=== PATIENT | female | born 1935 | race Caucasian/White ===

== ENCOUNTER → 2016-10-04 | Outpatient (CLI) | payer BC ==
[~2016-10-04] MED LIST: CHOL20007 PO; OFLO0.3S TOP; PRED1SUS3 OPR
[2016-10-04 11:02] LABS: ESTIMATED AVERAGE GLUCOSE 123 mg/dl; HA1C FLAG Normal (Normal)
[2016-10-04 11:19] LABS: BLOOD UREA NITROGEN 17 mg/dl (7-18); BUN/CREATININE RATIO 15.5 (10-20); CALCIUM 8.9 mg/dl (8.5-10.1); CARBON DIOXIDE 28 mmol/L (21-32); CHLORIDE 109 mmol/L (98-107); GLUCOSE 91 mg/dl (70-99); SODIUM 144 mmol/L (136-145)
== END | disposition home or self-care (01) ==
LOC: C.LABBC 07:59
PROVIDERS: ATTEND Internal Medicine
DX: I10 Essential (primary) hypertension (principal); E55.9 Vitamin D deficiency, unspecified; R73.01 Impaired fasting glucose

== ENCOUNTER → 2017-04-09 | Outpatient (CLI) | payer BC ==
[2017-04-09 11:08] LABS: ESTIMATED AVERAGE GLUCOSE 120 mg/dl; HA1C FLAG Normal (Normal)
[2017-04-09 11:16] LABS: BLOOD UREA NITROGEN 16 mg/dl (7-18); BUN/CREATININE RATIO 16.2 (10-20); CALCIUM 8.8 mg/dl (8.5-10.1); CARBON DIOXIDE 27 mmol/L (21-32); CHLORIDE 108 mmol/L (98-107); CREATININE 0.97 mg/dl (0.60-1.20); GLUCOSE 99 mg/dl (70-99); POTASSIUM 4.1 mmol/L (3.5-5.1); SODIUM 139 mmol/L (136-145)
[2017-04-09 11:19] LABS: CHOLESTEROL 184 mg/dl (0-200); CHOLESTEROL/HDL RATIO 2.1; HDL CHOLESTEROL 89 mg/dl; LDL CHOLESTEROL CALCULATED 82 mg/dl; TRIGLYCERIDES 67 mg/dl (0-150); VERY LOW DENSITY LIPOPROT CALC 13 mg/dl
== END | disposition home or self-care (01) ==
LOC: C.LABBC 08:15
PROVIDERS: ATTEND Internal Medicine
DX: E55.9 Vitamin D deficiency, unspecified (principal); I10 Essential (primary) hypertension; R73.01 Impaired fasting glucose

== ENCOUNTER 2019-08-22 13:47 | Inpatient (IN) ==
[2019-08-22] MEDS ORDERED: SODIUM CHLORIDE 0.9% 1000ML 1,000 ML IV ONE (13:53)
--- NOTE | 2019-08-22 14:32 | Emergency Department Note ---
History of Present Illness General Chief complaint: Altered Mental Status Stated complaint: ams Time Seen by Provider: 08/22/19 13:49 History of Present Illness Provider complaint: Altered mental status 84-year-old female was brought in by EMS for altered mental status. EMS states they received a call from a neighbor and after having please help them get into the house, they found the patient sitting in her bedroom in a pool of her own urine. The patient lives at home by herself. The only medication they found in the house was lisinopril. Patient is unable to give a history at this time and the history is limited. Home Medications Home Medications Medication Instructions Recorded Confirmed Type cholecalciferol (vitamin D3) 25 1,000 units PO DAILY 12/23/18 08/22/19 History mcg (1,000 unit) capsule lisinopril 5 mg tablet 5 mg PO DAILY #30 tab 07/20/19 08/22/19 Rx Allergies Allergy/AdvReac Type Severity Reaction Status Date / Time No Known Allergies Allergy Unknown Verified 07/13/19 11:41 Past Med/Surg History Medical History Essential hypertension (Acute) Hearing loss (Acute) History of breast cancer (Resolved) Hx of basal cell carcinoma Osteoporosis (Acute) Rosacea (Acute) Syncope Vitamin D deficiency (Acute) Surgical History (Updated 08/20/19 @ 14:50 by Addy Peters MD) History of lumpectomy of left breast History of Mohs micrographic surgery for skin cancer Hx of tonsillectomy Tubal ligation status Social History Preferred Language: Togolese Hearing Ability: Normal [employer] Consultant Required: No marital status: Current Living Situation: Alone current occupational status: retired Feels Safe at Home: Hesitant to Answer Smoking Status: Unknown if ever smoked Hx Alcohol Use: Yes Hx Substance Use: No Childhood Exposure to Second-Hand Smoke: Yes Dental Care, Regularly: Yes Physical Activity Frequency: 3-4 Times per Week Seatbelt Use: always Sunscreen Use: Yes Review of Systems Unobtainable due to cognitive status Physical Exam Vital Signs Vital Signs - 24 hr 08/22/19 14:05 08/22/19 14:08 08/22/19 14:14 Temperature 36.9 C Temperature Source Rectal Pulse Rate 87 Pulse Rate [Apical] Pulse Rhythm Regular Pulse Rhythm [Apical] Pulse Strength Normal Respiratory Rate 16 Respiratory Effort / Characteristics Non-Labored Spontaneous Respiratory Depth Normal Respiratory Pattern Regular Blood Pressure 180/89 H Blood Pressure [Left Arm] Blood Pressure Mean 119 Blood Pressure Mean [Left Arm] Blood Pressure Position Lying Blood Pressure Position [Left Arm] Pulse Oximetry 96 96 96 Oxygen Delivery Method Room Air Room Air Room Air Sepsis New/Unexplained Change in Mental Status Yes Sepsis Action Taken by Nursing No Action Required 08/22/19 15:12 Temperature Temperature Source Pulse Rate Pulse Rate [Apical] 89 Pulse Rhythm Pulse Rhythm [Apical] Regular Pulse Strength Respiratory Rate 20 Respiratory Effort / Characteristics Non-Labored Respiratory Depth Normal Respiratory Pattern Blood Pressure Blood Pressure [Left Arm] 210/80 H Blood Pressure Mean Blood Pressure Mean [Left Arm] 123 Blood Pressure Position Blood Pressure Position [Left Arm] Lying Pulse Oximetry 96 Oxygen Delivery Method Room Air Sepsis New/Unexplained Change in Mental Status Sepsis Action Taken by Nursing Physical Exam HENT: Exam performed. -Head: Normocephalic and atraumatic. -Right Ear: External ear normal. No mastoid tenderness. -Left Ear: External ear normal. No mastoid tenderness. -Mouth/Throat: The oropharynx is clear and moist. No trismus in the jaw. No dental abscesses or uvula swelling. No oropharyngeal exudate or tonsillar abscesses. EYES: Conjunctivae and EOM are normal. Pupils are equal, round, and reactive to light. Right eye exhibits no discharge. Left eye exhibits no discharge. No scleral icterus. NECK: Supple CV: Normal rate, regular rhythm, normal heart sounds and intact distal pulses. There is no peripheral edema. Palpable radial pulses bue. PULM/CHEST: Effort normal and breath sounds normal. No respiratory distress. No stridor. She has no wheezes. She has no rales. -Chest Wall: She exhibits no tenderness. ABD: The abdomen is soft. MUSC/SKEL: Normal range of motion. There is no peripheral edema, tenderness or deformity. LYMPH: No cervical adenopathy. NEURO: Motor and sensation grossly intact. GCS: E: 4 V: 1 M: 4 SKIN: Skin is warm and dry. She is not diaphoretic. Course Course 1400: The patient was evaluated in room A3. A complete history and physical exam was performed. 1545: Labs show leukocytosis of 12.3 and mildly elevated creatinine kinase of 687. Imaging shows no traumatic injury. No large cerebral infarct or any intracerebral hemorrhage. Patient is still unable to communicate with me. It is thought that the patient could have suffered from a stroke. Patient is not a TPA candidate as we do not know when her symptoms started. I did discuss this with the patient's daughter Angelika Salinas [phone] via telephone. She is a nurse in [place] who states she will come up to [facility] as soon as possible. Many hospitalist Dr. Schneider was made aware of the patient. Administered Medications Discontinued Medications Sodium Chloride (Nss 1000ml) 1,000 mls @ 999 mls/hr IV .Q1H1M ONE Stop: 08/22/19 14:53 Last Admin: 08/22/19 14:24 Dose: 999 mls/hr Documented by: [id number] Medical Decision Making Laboratory Data Result diagrams: 08/22/19 14:37 08/22/19 14:37 Lab Results 08/22/19 08/22/19 08/22/19 Range/Units 14:04 14:37 14:37 WBC 12.31 H (4.8-10.8) K/uL RBC 5.20 (4.2-5.4) M/uL Hgb 16.2 H (12.0-16.0) g/dL Hct 48.1 H (37-47) % MCV 92.5 (80-100) fL MCH 31.2 (25-34) pg MCHC 33.7 (32-36) g/dL RDW Std Deviation 44.2 (36.4-46.3) fL RDW Coeff of [place] 13.1 (11.5-14.5) % Plt Count 305 (130-400) K/uL MPV 9.7 (7.4-10.4) fL Immature Gran % (Auto) 0.3 % Neut % (Auto) 85.3 % Lymph % (Auto) 7.4 % [place] % (Auto) 6.9 % Eos % (Auto) 0.0 % Baso % (Auto) 0.1 % Immature Gran # (Auto) 0.04 H (0.00-0.02) K/uL Neut # (Auto) 10.50 H (1.4-6.5) K/uL Lymph # (Auto) 0.91 L (1.2-3.4) K/uL [place] # (Auto) 0.85 H (0.11-0.59) K/uL Eos # (Auto) 0.00 (0-0.5) K/uL Baso # (Auto) 0.01 (0-0.2) K/uL Platelet Estimate Normal (Normal) VBG pH (7.36-7.41) VBG pCO2 (38-50) mmHg VBG pO2 mmHg VBG HCO3 mmol/L VBG O2 Saturation % VBG Base Excess mEq/L Barometric Pressure mm/Hg Sodium (136-145) mmol/L Potassium (3.5-5.1) mmol/L Chloride (98-107) mmol/L Carbon Dioxide (21-32) mmol/L Anion Gap (3-11) BUN (7-18) mg/dl Creatinine (0.6-1.2) mg/dl Est Cr Clr Drug Dosing ml/min Est GFR ( Amer) Est GFR (Non-Af Amer) BUN/Creatinine Ratio (10-20) Glucose (70-99) mg/dl Lactate (0.4-2.0) mmol/L Calcium (8.5-10.1) mg/dl Magnesium (1.8-2.4) mg/dl Total Bilirubin (0.2-1) mg/dl AST (15-37) U/L ALT (12-78) U/L Alkaline Phosphatase (45-117) U/L Total Creatine Kinase (26-192) U/L Troponin I (0-0.045) ng/ml Total Protein (6.4-8.2) gm/dl Albumin (3.4-5.0) gm/dl Globulin (2.5-4.0) gm/dl Albumin/Globulin Ratio (0.9-2) Procalcitonin < 0.05 (0-0.5) ng/ml Urine Color Dark Yellow Urine Appearance Clear (Clear) Urine pH 5.5 (4.5-7.5) Ur Specific [place] 1.034 H (1.000-1.030) Urine Protein 1+ H (Negative) Urine Glucose (UA) Negative (Negative) Urine Ketones 2+ H (Negative) Urine Blood Negative (Negative) Urine Nitrite Negative (Negative) Urine Bilirubin Negative (Negative) Urine Urobilinogen Negative (Negative) Ur Leukocyte Esterase Negative (Negative) Urine WBC (Auto) 1-5 (0-5) /hpf Urine RBC (Auto) 0-4 (0-4) /hpf U Hyaline Cast (Auto) 1-5 (0-5) /lpf U Epithel Cells (Auto) 20-30 H (0-5) /lpf Urine Bacteria (Auto) Negative (Negative) Influenza Type A (PCR) (Neg) Influenza Type B (PCR) (Neg) 08/22/19 08/22/19 08/22/19 Range/Units 14:37 14:38 14:38 WBC (4.8-10.8) K/uL RBC (4.2-5.4) M/uL Hgb (12.0-16.0) g/dL Hct (37-47) % MCV (80-100) fL MCH (25-34) pg MCHC (32-36) g/dL RDW Std Deviation (36.4-46.3) fL RDW Coeff of [place] (11.5-14.5) % Plt Count (130-400) K/uL MPV (7.4-10.4) fL Immature Gran % (Auto) % Neut % (Auto) % Lymph % (Auto) % [place] % (Auto) % Eos % (Auto) % Baso % (Auto) % Immature Gran # (Auto) (0.00-0.02) K/uL Neut # (Auto) (1.4-6.5) K/uL Lymph # (Auto) (1.2-3.4) K/uL [place] # (Auto) (0.11-0.59) K/uL Eos # (Auto) (0-0.5) K/uL Baso # (Auto) (0-0.2) K/uL Platelet Estimate (Normal) VBG pH 7.40 (7.36-7.41) VBG pCO2 45 (38-50) mmHg VBG pO2 27 mmHg VBG HCO3 28 mmol/L VBG O2 Saturation < 60.0 % VBG Base Excess 2.2 mEq/L Barometric Pressure 731.1 mm/Hg Sodium 143 (136-145) mmol/L Potassium 4.1 (3.5-5.1) mmol/L Chloride 110 H (98-107) mmol/L Carbon Dioxide 25 (21-32) mmol/L Anion Gap 8.0 (3-11) BUN 35 H (7-18) mg/dl Creatinine 1.00 (0.6-1.2) mg/dl Est Cr Clr Drug Dosing 37.7 ml/min Est GFR ( Amer) 59.1 Est GFR (Non-Af Amer) 51.0 BUN/Creatinine Ratio 35.4 H (10-20) Glucose 135 H (70-99) mg/dl Lactate 1.3 (0.4-2.0) mmol/L Calcium 9.7 (8.5-10.1) mg/dl Magnesium 2.5 H (1.8-2.4) mg/dl Total Bilirubin 1.1 H (0.2-1) mg/dl AST 55 H (15-37) U/L ALT 40 (12-78) U/L Alkaline Phosphatase 96 (45-117) U/L Total Creatine Kinase 687 H (26-192) U/L Troponin I < 0.015 (0-0.045) ng/ml Total Protein 7.1 (6.4-8.2) gm/dl Albumin 3.7 (3.4-5.0) gm/dl Globulin 3.4 (2.5-4.0) gm/dl Albumin/Globulin Ratio 1.1 (0.9-2) Procalcitonin (0-0.5) ng/ml Urine Color Urine Appearance (Clear) Urine pH (4.5-7.5) Ur Specific [place] (1.000-1.030) Urine Protein (Negative) Urine Glucose (UA) (Negative) Urine Ketones (Negative) Urine Blood (Negative) Urine Nitrite (Negative) Urine Bilirubin (Negative) Urine Urobilinogen (Negative) Ur Leukocyte Esterase (Negative) Urine WBC (Auto) (0-5) /hpf Urine RBC (Auto) (0-4) /hpf U Hyaline Cast (Auto) (0-5) /lpf U Epithel Cells (Auto) (0-5) /lpf Urine Bacteria (Auto) (Negative) Influenza Type A (PCR) (Neg) Influenza Type B (PCR) (Neg) 08/22/19 Range/Units 14:40 WBC (4.8-10.8) K/uL RBC (4.2-5.4) M/uL Hgb (12.0-16.0) g/dL Hct (37-47) % MCV (80-100) fL MCH (25-34) pg MCHC (32-36) g/dL RDW Std Deviation (36.4-46.3) fL RDW Coeff of [place] (11.5-14.5) % Plt Count (130-400) K/uL MPV (7.4-10.4) fL Immature Gran % (Auto) % Neut % (Auto) % Lymph % (Auto) % [place] % (Auto) % Eos % (Auto) % Baso % (Auto) % Immature Gran # (Auto) (0.00-0.02) K/uL Neut # (Auto) (1.4-6.5) K/uL Lymph # (Auto) (1.2-3.4) K/uL [place] # (Auto) (0.11-0.59) K/uL Eos # (Auto) (0-0.5) K/uL Baso # (Auto) (0-0.2) K/uL Platelet Estimate (Normal) VBG pH (7.36-7.41) VBG pCO2 (38-50) mmHg VBG pO2 mmHg VBG HCO3 mmol/L VBG O2 Saturation % VBG Base Excess mEq/L Barometric Pressure mm/Hg Sodium (136-145) mmol/L Potassium (3.5-5.1) mmol/L Chloride (98-107) mmol/L Carbon Dioxide (21-32) mmol/L Anion Gap (3-11) BUN (7-18) mg/dl Creatinine (0.6-1.2) mg/dl Est Cr Clr Drug Dosing ml/min Est GFR ( Amer) Est GFR (Non-Af Amer) BUN/Creatinine Ratio (10-20) Glucose (70-99) mg/dl Lactate (0.4-2.0) mmol/L Calcium (8.5-10.1) mg/dl Magnesium (1.8-2.4) mg/dl Total Bilirubin (0.2-1) mg/dl AST (15-37) U/L ALT (12-78) U/L Alkaline Phosphatase (45-117) U/L Total Creatine Kinase (26-192) U/L Troponin I (0-0.045) ng/ml Total Protein (6.4-8.2) gm/dl Albumin (3.4-5.0) gm/dl Globulin (2.5-4.0) gm/dl Albumin/Globulin Ratio (0.9-2) Procalcitonin (0-0.5) ng/ml Urine Color Urine Appearance (Clear) Urine pH (4.5-7.5) Ur Specific [place] (1.000-1.030) Urine Protein (Negative) Urine Glucose (UA) (Negative) Urine Ketones (Negative) Urine Blood (Negative) Urine Nitrite (Negative) Urine Bilirubin (Negative) Urine Urobilinogen (Negative) Ur Leukocyte Esterase (Negative) Urine WBC (Auto) (0-5) /hpf Urine RBC (Auto) (0-4) /hpf U Hyaline Cast (Auto) (0-5) /lpf U Epithel Cells (Auto) (0-5) /lpf Urine Bacteria (Auto) (Negative) Influenza Type A (PCR) Neg for Influ A (Neg) Influenza Type B (PCR) Neg for Influ B (Neg) Imaging Data Radiologist's Impression: XR pelvis 1-2V routine CLINICAL HISTORY: Fall. Altered mental status. COMPARISON: None FINDINGS: Sacroiliac joints and symphysis pubis are intact. There is no acute fracture within the pelvis or hips. There is mild bilateral hip osteoarthritis. No suspicious osseous lesion is noted. Pelvic calcifications likely reflect phleboliths. IMPRESSION: No acute fracture within the pelvis or hips. ACT 112: Negative or not required by law. Electronically signed by: Delgado Cee M.D. 08/22/2019 3:20 PM Dictated: 08/22/19 1519 Transcribed: 08/22/[address] OF THE HEAD WITHOUT CONTRAST CLINICAL HISTORY: Fall. Altered mental status. COMPARISON STUDY: No previous studies for comparison. TECHNIQUE: Helical axial images of the head were obtained without IV contrast. Automated exposure control was utilized for the study. A dose lowering tech nique was utilized adhering to the principles of ALARA. FINDINGS: No acute intracranial hemorrhage, midline shift or mass effect is present. The ventricular system is unremarkable. The basilar cisterns are patent. No extra-axial collections are present. There are no findings to suggest acute dural sinus thrombosis or acute territorial infarct. No significant calvarial abnormalities are present. Visualized portions of the sinuses and mastoid air cells are clear. Extensive white matter hypodensity suggests small vessel disease. There is moderate atrophy. IMPRESSION: 1. No acute intracranial findings. 2. No calvarial fracture. 3. Extensive small vessel disease. Moderate atrophy. ACT 112: Negative or not required by law. Electronically signed by: Delgado Cee M.D. 08/22/2019 2:56 PM Dictated: 08/22/19 1453 Transcribed: 08/22/19 145 XR chest 1V portable CLINICAL HISTORY: Fall. Sepsis. COMPARISON STUDY: Chest radiograph March 10, 2019. FINDINGS: The patient is mildly rotated. Lung volumes are normal. Lungs are clear. There is no pneumothorax or pleural effusion. Cardiac size is normal. Mediastinal contours are normal. There is no evidence for pulmonary edema. IMPRESSION: No acute cardiopulmonary findings. ACT 112: Negative or not required by law. Electronically signed by: Delgado Cee M.D. 08/22/2019 3:21 PM Dictated: 08/22/19 1520 Transcribed: 08/22/[address] OF THE CERVICAL SPINE WITHOUT CONTRAST CLINICAL HISTORY: Fall. Altered mental status. COMPARISON STUDY: No previous studies for comparison. TECHNIQUE: Helical axial images of the cervical spine were obtained without IV contrast. Sagittal and coronal reconstructions were viewed. Automated exposure control was utilized for the study. A dose lowering technique was utilized adhering to the principles of ALARA. FINDINGS: Alignment of the cervical spine is anatomic. Vertebral body heights are maintained. No acute cervical spine fracture or subluxation is present. There is no prevertebral edema. Facet joints are intact. Note is made of moderate multilevel disc space narrowing, osteophytosis. There is moderate multilevel facet arthrosis. Degenerative changes at the C1-C2 articulation are noted. IMPRESSION: No acute cervical spine fracture or subluxation. ACT 112: Negative or not required by law. Electronically signed by: Delgado Cee M.D. 08/22/2019 3:04 PM Dictated: 08/22/19 1456 Transcribed: 08/22/19 145 ECG Data Rate (beats per minute): 93 Additional Comments: Sinus rhythm with a rate of 93. IL interval 82. QRS 72. QTc 440. No ST elevation or ST depression. There is baseline artifact due to patient movement. MDM Narrative Labs show leukocytosis of 12.3 and mildly elevated creatinine kinase of 687. Imaging shows no traumatic injury. No large cerebral infarct or any intracerebral hemorrhage. Patient is still unable to communicate with me. It is thought that the patient could have suffered from a stroke. Patient is not a TPA candidate as we do not know when her symptoms started. I did discuss this with the patient's daughter Angelika Salinas [phone] via telephone. She is a nurse in [place] who states she will come up to [facility] as soon as possible. Many hospitalist Dr. Schneider was made aware of the patient. Impression & Plan Altered mental status Discharge Plan Visit Data Chief Complaint: Altered Mental Status Stated Complaint: ams ED Provider: Jeffrey Valentine Discharge Problem: Altered mental status Forms Stand Alone Forms: My [facility] Prescriptions Prescriptions: No Action lisinopril 5 mg tablet 5 mg PO DAILY Qty: 30 RF: 4 cholecalciferol (vitamin D3) 1,000 unit capsule 1,000 units PO DAILY RF: 0 Referrals Referrals: Johnathon Rachel MD [Primary Care Provider] - Discharge Problem: Altered mental status Qualifiers: Altered mental status type: unspecified Qualified Code(s): R41.82 - Altered mental status, unspecified
[2019-08-22 14:43] LABS: Appearance Urine Clear (Clear); Bacteria Urine Automated Negative (Negative); Bilirubin Urine Negative (Negative); Blood Urine Negative (Negative); Color Urine Dark Yellow; Epithelial Cell Urine Auto 20-30 /lpf (0-5); Glucose Urine UA Negative (Negative); Ketones Urine 2+ (Negative); Leukocyte Esterase Urine Negative (Negative); Nitrite Urine Negative (Negative); Protein Urine 1+ (Negative); RBC Urine Automated 0-4 /hpf (0-4); Specific Gravity Urine 1.034 (1.000-1.030); Urobilinogen Urine Negative (Negative); pH Urine 5.5 (4.5-7.5)
[2019-08-22 14:49] LABS: Base Excess VBG 2.2 mEq/L; HCO3 VBG 28 mmol/L; Oxygen Saturation VBG < 60.0 %; PCO2 VBG 45 mmHg (38-50); PO2 VBG 27 mmHg
--- NOTE | 2019-08-22 14:57 | CT Scan Report ---
CT OF THE HEAD WITHOUT CONTRAST CLINICAL HISTORY: Fall. Altered mental status. COMPARISON STUDY: No previous studies for comparison. TECHNIQUE: Helical axial images of the head were obtained without IV contrast. Automated exposure con trol was utilized for the study. A dose lowering technique was utilized adhering to the principles o f ALARA. FINDINGS: No acute intracranial hemorrhage, midline shift or mass effect is present. The ventricular system is unremarkable. The basilar cisterns are patent. No extra-axial collections are present. Ther e are no findings to suggest acute dural sinus thrombosis or acute territorial infarct. No significan t calvarial abnormalities are present. Visualized portions of the sinuses and mastoid air cells are c lear. Extensive white matter hypodensity suggests small vessel disease. There is moderate atrophy. IMPRESSION: 1. No acute intracranial findings. 2. No calvarial fracture. 3. Extensive small vessel disease. Moderate atrophy. ACT 112: Negative or not required by law. Electronically signed by: Delgado Cee M.D. 08/22/2019 2:56 PM
[2019-08-22 15:04] LABS: Alanine Aminotransferase 40 U/L (12-78); Albumin Level 3.7 gm/dl (3.4-5.0); Aspartate Aminotransferase 55 U/L (15-37); BUN Creatinine Ratio 35.4 (10-20); Blood Urea Nitrogen 35 mg/dl (7-18); Calcium 9.7 mg/dl (8.5-10.1); Carbon Dioxide 25 mmol/L (21-32); Chloride 110 mmol/L (98-107); Creatinine Clr Calc Pharmacy 37.7 ml/min; Est GFR (African American) 59.1; Glucose 135 mg/dl (70-99); Magnesium 2.5 mg/dl (1.8-2.4); Potassium 4.1 mmol/L (3.5-5.1); Sodium 143 mmol/L (136-145)
--- NOTE | 2019-08-22 15:05 | CT Scan Report ---
CT OF THE CERVICAL SPINE WITHOUT CONTRAST CLINICAL HISTORY: Fall. Altered mental status. COMPARISON STUDY: No previous studies for comparison. TECHNIQUE: Helical axial images of the cervical spine were obtained without IV contrast. Sagittal a nd coronal reconstructions were viewed. Automated exposure control was utilized for the study. A do se lowering technique was utilized adhering to the principles of ALARA. FINDINGS: Alignment of the cervical spine is anatomic. Vertebral body heights are maintained. No acut e cervical spine fracture or subluxation is present. There is no prevertebral edema. Facet joints are intact. Note is made of moderate multilevel disc space narrowing, osteophytosis. There is moderate multilevel facet arthrosis. Degenerative changes at the C1-C2 articulation are noted. IMPRESSION: No acute cervical spine fracture or subluxation. ACT 112: Negative or not required by law. Electronically signed by: Delgado Cee M.D. 08/22/2019 3:04 PM
[2019-08-22 15:08] LABS: Albumin Globulin Ratio 1.1 (0.9-2); Alkaline Phosphatase 96 U/L (45-117); Bilirubin,Total 1.1 mg/dl (0.2-1); Creatine Kinase 687 U/L (26-192); Globulin 3.4 gm/dl (2.5-4.0); Total Protein 7.1 gm/dl (6.4-8.2); Troponin I < 0.015 ng/ml (0-0.045)
[2019-08-22 15:15] LABS: Basophils # (auto) 0.01 K/uL (0-0.2); Basophils % (auto) 0.1 %; Hematocrit (blood only) 48.1 % (37-47); Hemoglobin 16.2 g/dL (12.0-16.0); Immature Granulocytes # (auto) 0.04 K/uL (0.00-0.02); Immature Granulocytes % (auto) 0.3 %; Lymphocytes # (auto) 0.91 K/uL (1.2-3.4); Lymphocytes % (auto) 7.4 %; Mean Corpuscular Hemoglobin 31.2 pg (25-34); Mean Corpuscular Hgb Conc 33.7 g/dL (32-36); Mean Corpuscular Volume 92.5 fL (80-100); Mean Platelet Volume 9.7 fL (7.4-10.4); Monocytes # (auto) 0.85 K/uL (0.11-0.59); Monocytes % (auto) 6.9 %; Neutrophils % (auto) 85.3 %; Platelet Count 305 K/uL (130-400); Platelet Estimate Normal (Normal); RDW Coefficient of Variation 13.1 % (11.5-14.5); RDW Standard Deviation 44.2 fL (36.4-46.3); White Blood Count 12.31 K/uL (4.8-10.8)
--- NOTE | 2019-08-22 15:21 | XRay Report ---
XR pelvis 1-2V routine CLINICAL HISTORY: Fall. Altered mental status. COMPARISON: None FINDINGS: Sacroiliac joints and symphysis pubis are intact. There is no acute fracture within the pe lvis or hips. There is mild bilateral hip osteoarthritis. No suspicious osseous lesion is noted. Pelv ic calcifications likely reflect phleboliths. IMPRESSION: No acute fracture within the pelvis or hips. ACT 112: Negative or not required by law. Electronically signed by: Delgado Cee M.D. 08/22/2019 3:20 PM
--- NOTE | 2019-08-22 15:22 | XRay Report ---
XR chest 1V portable CLINICAL HISTORY: Fall. Sepsis. COMPARISON STUDY: Chest radiograph March 10, 2019. FINDINGS: The patient is mildly rotated. Lung volumes are normal. Lungs are clear. There is no pneumo thorax or pleural effusion. Cardiac size is normal. Mediastinal contours are normal. There is no evid ence for pulmonary edema. IMPRESSION: No acute cardiopulmonary findings. ACT 112: Negative or not required by law. Electronically signed by: Delgado Cee M.D. 08/22/2019 3:21 PM
[2019-08-22 15:24] LABS: Influenza A virus by PCR Neg for Influ A (Neg); Influenza B virus by PCR Neg for Influ B (Neg)
--- NOTE | 2019-08-22 16:48 | History & Physical Report ---
Date of Service August 22, 2019 Assessment & Plan (1) Altered mental status: Possible CVA, sx improving in the ED CT head neg, MRI/MRA pending UA neg for infection, flu neg CXR neg for infection PRP, trop, lactic WNL WBC mildly elevated in the setting of fall CPK slightly elevated in the setting of likely early rhabdo Neuro c/s pending PT/OT/ST Passed bedside swallow without difficulty, will allow for soft diet (2) Essential hypertension: Labile in the ED in the setting of likely missed AM medication Metoprolol 5mg IV now, resume home meds in AM (3) DVT prophylaxis: Heparin for DVT proph, SCDs History of Present Illness Primary Care Provider: Johnathon Rachel MD 84 y/o F who was brought to the ED by ambulance after being found unresponsive and soaked in urine on the floor of her home. Pt was initially unresponsive in the ED, however upon my exam she is able to answer yes/no questions. Pt denies fever, SOB, chest pain, abd pain, n/v/c/d, LE pain or swelling. She cannot give me further details. I did speak with pt's daughter, Angelika Salinas, who is a nurse in [place]. She tells me that last contact with her mother was via her sister on Saturday and pt was doing well at that time. Pt requested that they stop checking in with her as much as they had been because she was doing fine despite the current COVID issues. They did not attempt to call her until yesterday. No answer was obtained and no return call from multiple calls. They thought pt might be busy with other things or ignoring them as she had requested them to not worry with her, but when pt was not answering or returning calls this AM, they became nervous. Police were asked to do a well check and obtained entry to the home when pt did not answer the door or phone. Pt was found on the floor as noted above. Daughter states that pt is generally quite active and healthy. Prior to COVID restrictions, she was going to the gym multiple times a week. She is very talkative and has no issues living on her own or communicating. Her only health issue was a syncopal episode last February. It was noted at that time that her BP was markedly elevated and she was started on lisinopril on d/c. She has been working with her PCP and this dose has been decreased lately. Allergies Allergy/AdvReac Type Severity Reaction Status Date / Time No Known Allergies Allergy Unknown Verified 07/13/19 11:41 Home Medications Home Medications Medication Instructions Recorded Confirmed Type cholecalciferol (vitamin D3) 25 1,000 units PO DAILY 12/23/18 08/22/19 History mcg (1,000 unit) capsule lisinopril 5 mg tablet 5 mg PO DAILY #30 tab 07/20/19 08/22/19 Rx Past Med/Surg History Medical History Essential hypertension (Acute) Hearing loss (Acute) History of breast cancer (Resolved) Hx of basal cell carcinoma Osteoporosis (Acute) Rosacea (Acute) Syncope Vitamin D deficiency (Acute) Surgical History History of lumpectomy of left breast History of Mohs micrographic surgery for skin cancer Hx of tonsillectomy Tubal ligation status Family History Brother Pulmonary embolism Mother Stroke Other Leukemia Lung cancer Denies family history of Ovarian cancer Prostate cancer Myocardial infarction Breast cancer Colorectal cancer Social History (Updated 08/22/19 @ 16:44 by Berkley Schneider DO) Preferred Language: French Hearing Ability: Normal 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 Beliefs That Will Affect Care: None marital status: Current Living Situation: Alone current occupational status: retired Other Information That Helps Us Care for You: No Feels Safe at Home: Yes Safety Concerns: Feels Safe At This Time Smoking Status: Never smoker Hx Alcohol Use: No Hx Substance Use: No Childhood Exposure to Second-Hand Smoke: Yes Dental Care, Regularly: Yes Physical Activity Frequency: 3-4 Times per Week Seatbelt Use: always Sunscreen Use: Yes Review of Systems Review of Systems: Pertinent positives and negatives reviewed in HPI--all others negative Physical Exam Constitutional: WD/WN, vitals as above Eyes: normal visual palomares by confrontation and + anicteric sclerae Neck: normal visual inspection and trachea midline Respiratory: normal respiratory effort, lungs clear to auscultation Cardiovascular: Rate/Rhythm: regular rate and regular rhythm Gastrointestinal (Abdomen): Inspection/Auscultation: abdomen not distended Percussion/Palpation: abdomen soft; abdomen nontender Musculoskeletal: Head/Neck/Chest: normocephalic and head atraumatic negative for edema, peripheral pulses intact Skin: no rashes, warm and dry Neurologic: awake; not confused Speech / Cognition: normal speech Psychiatric: Orientation: oriented to person and cooperative; + not oriented to place and + not oriented to time answers yes/no questions with what seem to be appropriate answers. When pressed for details, she states "ok" to any questions. 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 States she discussed this with her mother in the past as well VTE Prophylaxis Plan VTE Prophylaxis will be ordered: Yes PG Care Time/CCT Total # of Minutes Spent Total Time Spent with Patient: Total time spent is greater than 50% in coordination of care (as documented) at patient's floor/unit and/or counseling patient: Coding Level of Care Code 69510 Initial Inpt Care Lvl 3 Diagnoses Altered mental status R41.82 Altered mental status type: unspecified Essential hypertension I10 DVT prophylaxis Z29.9 (1) Altered mental status Altered mental status type: unspecified Qualified Code(s): R41.82 - Altered mental status, unspecified
[2019-08-22 16:52] LABS: INR 1.1 (0.9-1.1); Partial Thromboplastin Ratio 0.8; Partial Thromboplastin Time 23.4 Seconds (21.0-31.0); Prothrombin Time 11.6 Seconds (9.0-12.0)
[2019-08-22] MEDS ORDERED: METOPROLOL TARTRATE 1 MG/ML VIAL IV STA (17:39)
[2019-08-22] MEDS ORDERED: ACETAMINOPHEN 325 MG TAB PO PRN (18:17)
[2019-08-22] MEDS ORDERED: ONDANSETRON INJ 2 MG/ML 2 ML VIAL IV PRN (18:17)
[2019-08-22] MEDS ORDERED: PHARMACIST DISCHARGE MED REC CONSULT PRN ×2 (18:17→18:49)
[2019-08-22] MEDS ORDERED: MAGNESIUM HYDROXIDE SUSP 30 ML UDC PO PRN (18:17)
[2019-08-22] MEDS ORDERED: OPTIRAY 320 125ml IV PRN (20:42)
--- NOTE | 2019-08-22 21:01 | Magnetic Resonance Report ---
MRI OF THE BRAIN WITHOUT CONTRAST CLINICAL HISTORY: possible CVA COMPARISON STUDY: Head CT performed earlier today. TECHNIQUE: Utilizing a 1.5 Danica magnet and dedicated coil, multiplanar, multiecho imaging of the bra in was performed without IV contrast. FINDINGS: Note is made of multiple foci of restricted diffusion within the left paramedian frontal lo be that measure up to 4.3 x 1.2 cm. No acute intracranial hemorrhage is present. There is no signific ant mass effect. Marked atrophy is noted as well as extensive T2 hyperintensity consistent with small vessel disease. Ventricular system is unremarkable. Basilar cisterns are patent. There are no extra axial collections. No intracranial masses are identified on this unenhanced exam. Calvarial signal is maintained. Orbits are unremarkable. IMPRESSION: 1. Multiple acute infarcts within the left paramedian frontal lobe which measure up to 4.3 x 1.2 cm. No significant mass effect. No acute hemorrhage. 2. Marked atrophy and extensive small vessel disease. ACT 112: Negative or not required by law. Electronically signed by: Delgado Cee M.D. 08/22/2019 9:00 PM
[2019-08-22] MEDS: HEPARIN SOD 5,000 UNIT/0.5 ML VIAL SQ SCH (21:07)
--- NOTE | 2019-08-22 21:12 | CT Scan Report ---
CT ANGIOGRAPHY OF THE NECK WITH CONTRAST CLINICAL HISTORY: ?CVA COMPARISON STUDY: No previous studies for comparison. Technique: CT angiography of the carotid and vertebral arteries was obtained using [facility] 320 IV and 3D reconstruction on an independent workstation. NASCET criteria was utilized. Automated exposure c ontrol was utilized for the study. A dose lowering technique was utilized adhering to the principles of ALARA. Findings: Lung apices are clear. There is no cervical lymphadenopathy. No cervical spine fracture is noted. The bilateral carotid bifurcations are patent. There is minimal plaque within the proximal lef t internal carotid artery. The cervical portion of the right internal carotid artery is tortuous whic h results in moderate narrowing. However, there is no stenosis due to plaque within the major vessels of the neck. The bilateral vertebral arteries are patent. There is no dissection. There is no aneury sm within the major vessels of the neck. The CTA of the head will be reported separately. IMPRESSION: 1. Minimal plaque which results in no stenosis of the major vessels of the neck. No dissection. 2. Tortuosity of the cervical portion of the right internal carotid artery which results in moderate narrowing. ACT 112: Negative or not required by law. Electronically signed by: Delgado Cee M.D. 08/22/2019 9:11 PM
--- NOTE | 2019-08-22 21:17 | CT Scan Report ---
CTA ANGIOGRAPHY OF THE HEAD CLINICAL HISTORY: ?CVA COMPARISON STUDY: Head CT and MRI of the brain performed earlier today. TECHNIQUE: Helical axial images of the head were obtained following uneventful intravenous administr ation of 119 cc of Optiray 320. Sagittal and coronal reconstructions were viewed as well as maximal i ntensity projections on an independent 3-D workstation. Automated exposure control was utilized for the study. A dose lowering technique was utilized adhering to the principles of ALARA. CT DOSE: 468.97 mGy.cm FINDINGS: No intracranial aneurysm is noted. There is moderate stenosis of the left M1 segment and mi ld stenosis of the right M1 segment. There is asymmetric decreased flow within the left A2 segment wh ich could account for the acute infarcts shown on MRI of the brain performed earlier today. Posterior circulation is intact. No acute intracranial hemorrhage, midline shift or mass effect is present. Ex tensive small vessel disease is noted with atrophy. Ventricular system is unremarkable. The basilar c isterns are patent. IMPRESSION: 1. Asymmetric decreased flow within the left A2 segment which could account for the acute infarcts on MRI of the brain performed earlier today. 2. Moderate multifocal stenoses within the intracranial vessels, as described above. ACT 112: Negative or not required by law. Electronically signed by: Delgado Cee M.D. 08/22/2019 9:16 PM
[2019-08-22] MEDS ORDERED: ASPIRIN 81 MG CHEW PO ONE (22:32)
--- NOTE | 2019-08-22 22:35 | Communication Note ---
Date of Service: August 22, 2019 MRI shows multiple L frontal acute infarcts. Aspirin ordered + 1x dose. Pts LDL 81 at baseline, high dose therapy may lower her <40 and increased risk of intracranial bleeding. Atorv 20mg daily added for some stabilization effect. TTE ordered.
[2019-08-23 05:33] LABS: Basophils # (auto) 0.01 K/uL (0-0.2); Basophils % (auto) 0.1 %; Eosinophils # (auto) 0.03 K/uL (0-0.5); Eosinophils % (auto) 0.2 %; Hematocrit (blood only) 46.1 % (37-47); Hemoglobin 15.6 g/dL (12.0-16.0); Immature Granulocytes # (auto) 0.03 K/uL (0.00-0.02); Immature Granulocytes % (auto) 0.2 %; Lymphocytes # (auto) 1.39 K/uL (1.2-3.4); Lymphocytes % (auto) 10.7 %; Mean Corpuscular Hemoglobin 31.8 pg (25-34); Mean Corpuscular Hgb Conc 33.8 g/dL (32-36); Mean Corpuscular Volume 94.1 fL (80-100); Mean Platelet Volume 9.5 fL (7.4-10.4); Monocytes # (auto) 1.04 K/uL (0.11-0.59); Neutrophils # (auto) 10.46 K/uL (1.4-6.5); Neutrophils % (auto) 80.8 %; Platelet Count 322 K/uL (130-400); RDW Coefficient of Variation 13.3 % (11.5-14.5); RDW Standard Deviation 45.5 fL (36.4-46.3); White Blood Count 12.96 K/uL (4.8-10.8)
[2019-08-23] MEDS: HEPARIN SOD 5,000 UNIT/0.5 ML VIAL SQ SCH ×3 (05:58→21:22)
[2019-08-23 05:59] LABS: BUN Creatinine Ratio 31.4 (10-20); Calcium 9.5 mg/dl (8.5-10.1); Creatinine Clr Calc Pharmacy 40.2 ml/min; Est GFR (African American) 64.5; Est GFR (Non-African American) 55.6; Magnesium 2.5 mg/dl (1.8-2.4); Potassium 3.8 mmol/L (3.5-5.1)
[2019-08-23 06:02] LABS: Phosphorus 3.2 mg/dl (2.5-4.9)
[2019-08-23] MEDS: ASPIRIN 81 MG ECTAB PO SCH (08:15)
[2019-08-23 08:56] LABS: Albumin Level 3.5 gm/dl (3.4-5.0); Bilirubin Direct 0.2 mg/dl (0-0.2); Bilirubin,Total 0.9 mg/dl (0.2-1); Thyroid Stimulating Hormone 1.94 uIu/ml (0.300-4.500); Total Protein 6.5 gm/dl (6.4-8.2); Troponin I 0.016 ng/ml (0-0.045)
[2019-08-23] MEDS ORDERED: lisinopriL 5 MG TAB PO SCH (09:00)
[2019-08-23] MEDS ORDERED: ATORVASTATIN 20 MG TAB PO SCH (09:00)
[2019-08-23] MEDS: HydrALAZINE HCL 20 MG/ML VIAL IV PRN (09:03)
--- NOTE | 2019-08-23 10:27 | Electrocardiogram Report ---
Test Reason : Blood Pressure : / mmHG Vent. Rate : 088 BPM Atrial Rate : 088 BPM P-R Int : 106 ms QRS Dur : 080 ms QT Int : 404 ms P-R-T Axes : 070 027 044 degrees QTc Int : 488 ms Poor data quality, interpretation may be adversely affected Sinus rhythm with short DC Nonspecific ST abnormality Abnormal ECG When compared with ECG of 10-MAR-2019 12:06, No significant change was found Confirmed by Johnathon Escamilla ([id number]) on 08/23/2019 10:26:57 AM Referred By: REFERRED SELF Confirmed By:Johnathon Escamilla
--- NOTE | 2019-08-23 10:28 | Electrocardiogram Report ---
Test Reason : Blood Pressure : / mmHG Vent. Rate : 093 BPM Atrial Rate : 093 BPM P-R Int : 082 ms QRS Dur : 072 ms QT Int : 354 ms P-R-T Axes : 079 027 -01 degrees QTc Int : 440 ms Poor data quality, interpretation may be adversely affected Sinus rhythm with short NV Nonspecific ST and T wave abnormality Abnormal ECG When compared with ECG of 22-AUG-2019 14:02, (unconfirmed) Nonspecific T wave abnormality, worse in Inferior leads Confirmed by Johnathon Escamilla ([id number]) on 08/23/2019 10:28:08 AM Referred By: REFERRED SELF Confirmed By:Johnathon Escamilla
--- NOTE | 2019-08-23 11:43 | Neurology Consultation ---
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 - MRI brain: subacute infarct in the left SUSAN territory, severe SVID and generalized atrophy. - TTE: pending - Telemetry: pending - A1c: pending - FLP: 91 - Troponin, TSH: negative, WNL Stroke Management: - Acute treatment: ASA - Continuous cardiac monitoring, 30 day event monitor as outpatient if telemetry here unrevealing - Vitals, Neurochecks, NIHSS per unit routine - BP parameters: SBP CAP 180, restart home anti-hypertensives, IV Labetalol/Hydralazine PRN - Complete ischemic stroke workup with TTE without bubble, A1c - Consult speech, PT, OT for supportive management - Will primary substance abuse counselor concerning stroke education, smoking cessation, healthy diet, physical activity, weight loss - Follow up with PCP for assistance with outpatient goals (BP <135/85, LDL <70, A1c <7) - Follow up in neurology clinic in 6-8 weeks (can be telehealth check in if that is easier) Secondary Stroke Prevention: - Antiplatelet: ASA 81mg po daily/plavix 75mg daily for 30 days, then stop plavix - Anticoagulation: Not indicated at this time - Statin: Atorvastatin 40mg daily HTN: - BP parameters, as above - Restart home medications with goal of lowering BP to normotension (<140/90) over next 3-4 days FEN/GI: - Diet: NPO until cleared by Speech evaluation - Monitor lytes and replete PRN Glucose Control: - Sliding scale insulin and accuchecks per primary team to avoid hyperglycemia Thank you for this interesting consult. Plan of care was discussed with primary team. Please call with any questions. (2) Essential hypertension: (3) History of breast cancer: History of Present Illness Attending Physician: Shital Hamilton MD History of Present Illness Bree Sage is an 84 yo woman w/ PMH of HTN, h/o BCC, hearing loss, osteopor osis, vitamin D deficiency and h/o syncope who p/t [facility] after being found altered and sitting in her own urine. 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 In the ED, she was afebrile, blood pressure 180/89, heart rate 87, satting 96% on room air. Labs show WBC 12.31, hemoglobin 16.2, platelets 305, sodium 143, potassium 4.1, BUN mildly elevated at 35, creatinine 1.0, glucose 135, normal procalcitonin, UA positive for ketones but no infection, VBG within normal, lactate normal 1.3, troponin negative, CK elevated at 687, AST mildly elevated 55 with normal ALT and alkaline phosphatase, magnesium mildly elevated 2.5, normal calcium 9.7, negative flu A/B screen. X-ray of the pelvis showed no acute fracture in the hip or pelvis. Chest x-ray showed no sign of pneumonia. CT of the cervical spine showed no acute fracture or subluxation, there was moderate multilevel disc space narrowing and osteophytes present. EKG showed sinus rhythm with normal QT. Independent review of CT head shows generalized atrophy with moderate SVID, as well as a hypodensity in the paramedian left frontal lobe, no hemorrhage noted. She was admitted for possible stroke work-up Since being admitted, she had a CTA of the head and neck showed no LVO or aneurysm, mild stenosis of the right M1, moderate stenosis of the left M1, high grade stenosis of the left A2. MRI brain showed a subacute infarct in the left SUSAN territory, severe SVID and generalized atrophy. Stroke Workflow: Where patient arrived from: home Mode of arrival: Ambulance Time patient undergoes CT head: 13:54 on 08/21 Time patient undergoes advanced imagin:49 on 08/21 CT ASPECT: 9 Time IV tpa is given: NA If tpa not given, why not: Outside of time window If delay >60min after hospital arrival, why: NA If no IA therapy, why not: No LVO on CTA, completed stroke Patient Features: Admission NIHSS: 17 Admission Modified Pershing Scale: 0-1 Time patient last seen well: 08/18 pm Wake up stroke: unknown Intubation status: Not intubated Stroke Risk Factors: Hypertension: Y Hyperlipidemia: N Atrial Fib: N Tobacco: N Diabetes: N Taking NOAC or warfarin: N Allergies Allergy/AdvReac Type Severity Reaction Status Date / Time No Known Allergies Allergy Unknown Verified 07/13/19 11:41 Home Medications Home Medications Medication Instructions Recorded Confirmed Type cholecalciferol (vitamin D3) 25 1,000 units PO DAILY 12/23/18 08/22/19 History mcg (1,000 unit) capsule lisinopril 5 mg tablet 5 mg PO DAILY #30 tab 07/20/19 08/22/19 Rx Patient History Medical History Essential hypertension (Acute) Hearing loss (Acute) History of breast cancer (Resolved) Hx of basal cell carcinoma Osteoporosis (Acute) Rosacea (Acute) Syncope Vitamin D deficiency (Acute) Surgical History History of lumpectomy of left breast History of Mohs micrographic surgery for skin cancer Hx of tonsillectomy Tubal ligation status Family History Brother Pulmonary embolism Mother Stroke Other Leukemia Lung cancer Denies family history of Ovarian cancer Prostate cancer Myocardial infarction Breast cancer Colorectal cancer Social History Preferred Language: Occitan Communication Ability: Unable Hearing Ability: Normal 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 Beliefs That Will Affect Care: None marital status: Current Living Situation: Alone current occupational status: retired Other Information That Helps Us Care for You: No Feels Safe at Home: Yes Safety Concerns: Feels Safe At This Time Smoking Status: Never smoker Hx Alcohol Use: No Hx Substance Use: No Childhood Exposure to Second-Hand Smoke: Yes Dental Care, Regularly: Yes Physical Activity Frequency: 3-4 Times per Week Seatbelt Use: always Sunscreen Use: Yes Review of Systems Review of Systems: Unobtainable due to reduced consciousness Exam (Neuro) Physical Exam: General Exam: GEN: NAD, sitting in examination bed. HEENT: No conjunctival injection, no rhinorrhea. CV: RRR on monitor, no significant edema. PULM: Nonlabored respirations on room air. Neuro Exam: MS: Awake and Alert. Global aphasia, would only say yes intermittently. Could not follow commands. Unable to assess cognition/memory 2/2 aphasia. Attention intact. No neglect. CN: + blink to threat bilaterally. No extinction to double simultaneous stimuli. Could not visualize fundi on fundoscopic exam. PERRLA OU. EOMI without nystagmus. Could not assess facial sensation 2/2 aphasia. Facial muscles full and symmetric. Hearing intact to conversation. Shoulder shrug normal. Tongue midline. MOTOR: Normal bulk and tone. No pronator drift in LUE. Right upper extremity flaccid, left upper extremity antigravity with mild drift, right lower extremity minimally antigravity with immediate drift, left lower extremity antigravity with slow drift to bed. REFLEXES: 1+ at biceps, triceps, brachioradialis, patella, and absent Achilles bilaterally. Flexor plantar responses bilaterally. SENSORY: Intact to LT throughout, no clear extinction to double simultaneous stimuli. COORDINATION: Unable to assess fully given a aphasia and inability to follow commands GAIT: Deferred due to physical status. NIH STROKE SCALE 1A. Level of Consciousness (0-3) = 0 1B. LOC Questions (0-2) = 2 1C. LOC Commands (0-2) = 2 2. Best Horizontal Gaze (0-2) = 0 3. Visual Resendez (0-3) = 0 4. Facial Palsy (0-3) = 0 5. Motor Arm Right (0-4) = 4 Left (0-4) = 0 6. Motor Leg Right (0-4) = 3 Left (0-4) = 1 7. Limb Ataxia (0-2) = 0 8. Sensory (0-2) = 0 9. Best Language (0-3) = 3 10. Dysarthria (0-2) = 2 11. 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
[2019-08-23] MEDS ORDERED: CLOPIDOGREL BISULFATE 75 MG TAB PO ONE (14:35)
[2019-08-23] MEDS ORDERED: lisinopriL 5 MG TAB PO ONE (14:38)
--- NOTE | 2019-08-23 15:12 | Ultrasound Report ---
US venous doppler LE BI HISTORY: Pain. Edema. acute CVA, PFO,r/o DVT COMPARISON STUDY: None. FINDINGS: There is normal compressibility, flow, and augmentation within the bilateral lower extremit y deep venous systems. IMPRESSION: No DVT within the right or left lower extremity. ACT 112: Negative or not required by law. The above report was generated using voice recognition software. It may contain grammatical, syntax or spelling errors. Electronically signed by: Shiva Moses M.D. 08/23/2019 3:11 PM
[2019-08-23] MEDS ORDERED: SODIUM CHLORIDE 0.45 % 1,000 ML IV SCH (16:45)
--- NOTE | 2019-08-23 16:55 | Hospitalist Progress Note ---
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: Presented with being found down for unknown length of time in pool of her own urine, altered mental status Remains with Right hemiparesis and aphasia -found to have acute left paramedial frontal lobe multiple acute CVAs on brain MRI CTA head and neck with significant cerebrovascular atherosclerosis and left A2 occlusion -admitted to tele-no arrhythmia thus far CVA likely thrombotic vs poor flow due to cerebrovascular disease vs cardioembolic ECHO without thrombus but with interatrial shunt--> DOpplers LE bilat negative -start ASA, Plavix x 30 days, then go to ASA alone -start high intensity statin -Neuro consult appreciated PT/OT/Speech -BP control ok at this point as has likely been days since the CVA -will need cardiac event monitor on discharge as may have been occult Afib as cause of fibrillation (2) Hypernatremia: Na+ level mildly high -follow BMP -encouraged to let her drink fluids (3) Leukocytosis: secondary to stress response, was down on floor for unknown length of time follow CBC (4) Hypertensive urgency: IV hydralazine given increase lisinopril to 10mg daily (5) Rhabdomyolysis: CPK already trending downward (6) PFO (patent foramen ovale): as above, Dopplers LEs neg (7) Aphasia due to acute cerebrovascular accident (CVA): as above (8) Hemiparesis: as above (9) Essential hypertension: continue lisinopril and increase to 10mg daily (10) DVT prophylaxis: Heparin for DVT proph, SCDs Admission and Anticipated Discharge Date Admission Date: August 22, 2019 Subjective Pt only mumbles a small amount when I asked some questions, otherwise is aphasic today. She does follow some simple commands at times. Is not able to tell me her name. Is doing well with eating if being fed. I discussed case with Neuro Tele with NSR-ST 90-120s Review of Systems Review of Systems: All systems reviewed & are unremarkable except as noted in HPI & below Physical Exam Constitutional: + frail appearing; no acute distress Eyes: PERRL, conjunctivae normal, anicteric sclerae ENMT: external ear and nose normal, oropharynx normal Neck: trachea midline, no thyromegaly Respiratory: normal respiratory effort, lungs clear to auscultation Cardiovascular: RRR, no murmur, no edema Chest (Breasts): Chest: normal inspection of chest Gastrointestinal (Abdomen): normal bowel sounds, soft, nontender, no hepatosplenomegaly Musculoskeletal: Extremities: extremities normal to inspection; no cyanosis and no clubbing Skin: no rashes, warm and dry Neurologic: + focal motor deficit (RUE and RLE with 2/5 strength; otherwise 5/5 throughout) and awake Speech / Cognition: + expressive aphasia Motor/Sensory: + pronator drift (on RUE) Not able to follow commands for CN exam or sensory exam Psychiatric: Orientation: alert and cooperative Lymphatic: no lymphedema Results & Data Results & Data ([facility]) Vital Signs (Past 12 Hours) Vital Signs Temp Pulse Pulse Pulse Resp BP BP 08/23/19 16:15 92 H 159/73 H 08/23/19 16:00 97 H 08/23/19 14:49 36.5 C 102 H 18 116/69 08/23/19 12:00 36.5 C 97 H 20 181/77 H 08/23/19 09:26 58 L 156/66 H 08/23/19 08:09 36.4 C L 79 18 209/67 H Pulse Ox 08/23/19 16:15 08/23/19 16:00 08/23/19 14:49 95 08/23/19 12:00 97 08/23/19 09:26 08/23/19 08:09 96 Laboratory Results 08/23/19 08/23/19 08/23/19 Range/Units 05:15 05:15 05:15 WBC 12.96 H (4.8-10.8) K/uL RBC 4.90 (4.2-5.4) M/uL Hgb 15.6 (12.0-16.0) g/dL Hct 46.1 (37-47) % MCV 94.1 (80-100) fL MCH 31.8 (25-34) pg MCHC 33.8 (32-36) g/dL RDW Std Deviation 45.5 (36.4-46.3) fL RDW Coeff of [place] 13.3 (11.5-14.5) % Plt Count 322 (130-400) K/uL MPV 9.5 (7.4-10.4) fL Immature Gran % (Auto) 0.2 % Neut % (Auto) 80.8 % Lymph % (Auto) 10.7 % [place] % (Auto) 8.0 % Eos % (Auto) 0.2 % Baso % (Auto) 0.1 % Immature Gran # (Auto) 0.03 H (0.00-0.02) K/uL Neut # (Auto) 10.46 H (1.4-6.5) K/uL Lymph # (Auto) 1.39 (1.2-3.4) K/uL [place] # (Auto) 1.04 H (0.11-0.59) K/uL Eos # (Auto) 0.03 (0-0.5) K/uL Baso # (Auto) 0.01 (0-0.2) K/uL Sodium 146 H (136-145) mmol/L Potassium 3.8 (3.5-5.1) mmol/L Chloride 114 H (98-107) mmol/L Carbon Dioxide 28 (21-32) mmol/L Anion Gap 4.0 (3-11) BUN 29 H (7-18) mg/dl Creatinine 0.93 (0.6-1.2) mg/dl Est Cr Clr Drug Dosing 40.2 ml/min Est GFR ( Amer) 64.5 Est GFR (Non-Af Amer) 55.6 BUN/Creatinine Ratio 31.4 H (10-20) Glucose 121 H (70-99) mg/dl Calcium 9.5 (8.5-10.1) mg/dl Phosphorus 3.2 (2.5-4.9) mg/dl Magnesium 2.5 H (1.8-2.4) mg/dl Total Bilirubin 0.9 (0.2-1) mg/dl Direct Bilirubin 0.2 (0-0.2) mg/dl AST 43 H (15-37) U/L ALT 36 (12-78) U/L Alkaline Phosphatase 83 (45-117) U/L Total Creatine Kinase 400 H (26-192) U/L Troponin I 0.016 (0-0.045) ng/ml Total Protein 6.5 (6.4-8.2) gm/dl Albumin 3.5 (3.4-5.0) gm/dl Triglycerides 141 (0-150) mg/dl Cholesterol 180 (0-200) mg/dl LDL Cholesterol, Calc 91 mg/dl VLDL Cholesterol, Calc 28 mg/dl HDL Cholesterol 61 mg/dl Cholesterol/HDL Ratio 3 TSH 1.940 (0.300-4.500) uIu/ml Diagnostic Findings ECHO: preserved EF, +interatrial shunt Dopplers Bilat LEs negative for DVT PG Care Time/CCT Total # of Minutes Spent Total Time Spent with Patient: Total time spent is greater than 50% in coordination of care (as documented) at patient's floor/unit and/or counseling patient: Coding Level of Care Code 43813 Subseq Hosp Care Lvl 3 Diagnoses 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
[2019-08-24] MEDS: HydrALAZINE HCL 20 MG/ML VIAL IV PRN (03:58)
[2019-08-24] MEDS: HEPARIN SOD 5,000 UNIT/0.5 ML VIAL SQ SCH ×3 (05:38→21:23)
[2019-08-24 05:50] LABS: Estimated Average Glucose 120 mg/dl; Hemoglobin A1C 5.8 % (4.5-5.6)
[2019-08-24 07:13] LABS: Basophils # (auto) 0.02 K/uL (0-0.2); Basophils % (auto) 0.2 %; Eosinophils # (auto) 0.08 K/uL (0-0.5); Eosinophils % (auto) 0.8 %; Hematocrit (blood only) 45.5 % (37-47); Hemoglobin 15.2 g/dL (12.0-16.0); Immature Granulocytes # (auto) 0.01 K/uL (0.00-0.02); Immature Granulocytes % (auto) 0.1 %; Lymphocytes # (auto) 1.36 K/uL (1.2-3.4); Lymphocytes % (auto) 13.5 %; Mean Corpuscular Hemoglobin 31.8 pg (25-34); Mean Corpuscular Hgb Conc 33.4 g/dL (32-36); Mean Corpuscular Volume 95.2 fL (80-100); Mean Platelet Volume 9.6 fL (7.4-10.4); Monocytes # (auto) 0.76 K/uL (0.11-0.59); Monocytes % (auto) 7.5 %; Neutrophils # (auto) 7.87 K/uL (1.4-6.5); Neutrophils % (auto) 77.9 %; Platelet Count 310 K/uL (130-400); RDW Coefficient of Variation 13.2 % (11.5-14.5); RDW Standard Deviation 45.7 fL (36.4-46.3); Red Blood Count 4.78 M/uL (4.2-5.4)
[2019-08-24 07:29] LABS: BUN Creatinine Ratio 26.3 (10-20); Calcium 9.2 mg/dl (8.5-10.1); Creatinine Clr Calc Pharmacy 45.8 ml/min; Est GFR (African American) 75.1; Est GFR (Non-African American) 64.8; Potassium 3.6 mmol/L (3.5-5.1)
[2019-08-24] MEDS: ATORVASTATIN 40 MG TAB PO SCH (08:23)
[2019-08-24] MEDS: CLOPIDOGREL BISULFATE 75 MG TAB PO SCH (08:24)
[2019-08-24] MEDS: ASPIRIN 81 MG ECTAB PO SCH (08:24)
[2019-08-24] MEDS ORDERED: lisinopriL 10 MG TAB PO SCH (09:00)
[2019-08-24] MEDS ORDERED: lisinopriL 10 MG TAB PO ONE (16:13)
--- NOTE | 2019-08-24 16:15 | Hospitalist Progress Note ---
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: Acute left paramedial frontal lobe multiple acute CVAs Presented with being found down for unknown length of time in pool of her own urine, altered mental status Remains with Right hemiparesis and aphasic Symptom localization: left SUSAN Stroke mechanism: cardioembolic vs flow failure from intracranial atherosclerosis HbA1C 5.8, TSH WNL ECHO without thrombus but with interatrial shunt -> Dopplers LE b/l negative - Neuro, OT, PT and SLT consults appreciated - Continue ASA + Plavix for 30 days, then ASA alone - Continue atorvastatin 40mg PO daily, LDL 91 (not on statin) - Continue to decrease BP to goal BP < 135/85 (see below) - telemetry without a. fib - will need 30 day cardiac event monitor on discharge (2) Hypertensive urgency: Increase lisinopril to 20mg PO daily, will also add amlodipine as persistently elevated except when given hydralazine since admission. Continue hydralazine 5mg IV Q6H PRN for sBP > 200 Goal of lowering BP to normotension (<140/90) over next 1-2 days as per prior neurology note. (3) Rhabdomyolysis: CPK downtrending, no need to repeat. Levels not concerning for VANIA. (4) PFO (patent foramen ovale): as above, Dopplers LEs neg (5) Aphasia due to acute cerebrovascular accident (CVA): as above (6) Hemiparesis: as above (7) Essential hypertension: as above (8) DVT prophylaxis: Heparin 5000 units q12h for DVT proph SCDs Admission and Anticipated Discharge Date Admission Date: August 22, 2019 If BP stable overnight she will be medically stable for discharge tomorrow. Planning on SNF with rehab. Subjective Patient able to squeeze hand on command on left side and move toes. Otherwise unable to respond to questions either with shaking or nodding head or verbally. No agitation and she does not appear in pain. Review of Systems Review of Systems: Unobtainable due to cognitive status Physical Exam Constitutional: well developed and well nourished; no acute distress Eyes: + anicteric sclerae; normal pupil size (pupils equal) ENMT: external ear and nose normal, oropharynx normal Neck: normal visual inspection and trachea midline Respiratory: normal respiratory effort, lungs clear to auscultation Cardiovascular: Rate/Rhythm: regular rate and regular rhythm Heart Sounds: no murmur Extremities: normal capillary refill; no calf tenderness and no pedal edema Chest (Breasts): Chest: normal inspection of chest Gastrointestinal (Abdomen): Inspection/Auscultation: normal bowel sounds; abdomen not distended Percussion/Palpation: abdomen soft; abdomen nontender, no guarding and abdomen not rigid Musculoskeletal: Head/Neck/Chest: normocephalic and head atraumatic Skin: no rashes, warm and dry Neurologic: + focal motor deficit (see below) and awake; + plantar reflexes not intact (right upgoing) and not confused Speech / Cognition: + expressive aphasia; normal speech Motor/Sensory: + pronator drift (unable to move right side) Cranial Nerves: normal facial strength and able to rotate head bilaterally Flaccid RLE, RUE. Good formal service waiter strength on left hand without pronator drift. Able to move toes on left lower extremity. Psychiatric: Orientation: alert and cooperative; + not oriented to person, + not oriented to place and + not oriented to time Results & Data Results & Data ([facility]) Vital Signs (Past 12 Hours) Vital Signs Temp Pulse Pulse Resp BP Pulse Ox 08/24/19 15:06 36.4 C L 78 18 176/81 H 95 08/24/19 12:31 36.3 C L 88 18 175/79 H 98 08/24/19 09:00 74 08/24/19 07:00 37 C 98 H 18 108/70 91 08/24/19 05:00 179/72 H 08/24/19 04:59 87 PG Care Time/CCT Total # of Minutes Spent Total Time Spent with Patient: Total time spent is greater than 50% in coordination of care (as documented) at patient's floor/unit and/or counseling patient: Coding Level of Care Code 58559 Subseq Hosp Care Lvl 2 Diagnoses 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
[2019-08-24] MEDS ORDERED: AMLODIPINE BESYLATE 5 MG TAB PO ONE (17:49)
[2019-08-24] MEDS ORDERED: HydrALAZINE HCL 20 MG/ML VIAL IV PRN (17:50)
[2019-08-24] MEDS ORDERED: AMLODIPINE BESYLATE 5 MG TAB PO STA (17:54)
[2019-08-25] MEDS: HEPARIN SOD 5,000 UNIT/0.5 ML VIAL SQ SCH ×2 (07:53→21:30)
[2019-08-25] MEDS: AMLODIPINE BESYLATE 5 MG TAB PO SCH (07:53)
[2019-08-25] MEDS: lisinopriL 20 MG TAB PO SCH (07:54)
[2019-08-25] MEDS: CLOPIDOGREL BISULFATE 75 MG TAB PO SCH (07:55)
[2019-08-25] MEDS: ASPIRIN 81 MG ECTAB PO SCH (07:55)
[2019-08-25] MEDS: ATORVASTATIN 40 MG TAB PO SCH (07:55)
--- NOTE | 2019-08-25 18:48 | Hospitalist Progress Note ---
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: Acute left paramedial frontal lobe multiple acute CVAs Presented with being found down for unknown length of time in pool of her own urine, altered mental status Remains with Right hemiparesis and aphasic Symptom localization: left SUSAN Stroke mechanism: cardioembolic vs flow failure from intracranial atherosclerosis HbA1C 5.8, TSH WNL ECHO without thrombus but with interatrial shunt -> Dopplers LE b/l negative - Neuro, OT, PT and SLT consults appreciated - Continue ASA + Plavix for 30 days, then ASA alone - Continue atorvastatin 40mg PO daily, LDL 91 (not on statin) - Continue to decrease BP to goal BP < 135/85 (see below) - telemetry without a. fib - will need 30 day cardiac event monitor on discharge (2) Hypertensive urgency: Increased lisinopril to 20mg PO daily Added amlodipine 5mg PO daily today which appears to be having a good effect. Continue hydralazine 5mg IV Q6H PRN for sBP > 200 Goal of lowering BP to normotension (<140/90) over next 1-2 days as per prior neurology note. (3) Rhabdomyolysis: CPK downtrending, no need to repeat. Levels not concerning for VANIA. (4) PFO (patent foramen ovale): as above, Dopplers LEs neg (5) Aphasia due to acute cerebrovascular accident (CVA): as above (6) Hemiparesis: as above (7) Essential hypertension: as above (8) DVT prophylaxis: Heparin 5000 units q12h for DVT proph SCDs Admission and Anticipated Discharge Date Admission Date: August 22, 2019 Patient is medically stable for discharge at this time pending placement. Awaiting [facility] insurance authorization and bed availability. Subjective Patient able to squeeze hand on command on left side and move toes. Otherwise unable to respond to questions either with shaking or nodding head or verbally. No agitation and she does not appear in pain. Occasionally murmurs yes but not appropriate to questions asked. Updated her daughters over the phone. All questions and concerns answered. They did ask about prognosis about getting out of hospital and reports their mother was getting depressed with the lockdown for the last 2 months and they understand she needs to have motivation to participate in therapy which is difficult given the extent of her stroke and depression. Aware that her prognosis is generally poor and probably unlikely to get out of a shelter but we will know more in the weeks to come how much of a recovery she is going to make from this. Given extent of atherosclerotic disease though and her age she is a high risk for further strokes. Review of Systems Review of Systems: Unobtainable due to cognitive status Physical Exam Constitutional: well developed and well nourished; no acute distress Eyes: + anicteric sclerae; normal pupil size (pupils equal) ENMT: external ear and nose normal, oropharynx normal Neck: normal visual inspection and trachea midline Respiratory: no respiratory distress Cardiovascular: Rate/Rhythm: regular rate and regular rhythm Heart Sounds: no murmur Extremities: normal capillary refill Chest (Breasts): Chest: normal inspection of chest Gastrointestinal (Abdomen): Inspection/Auscultation: normal bowel sounds; abdomen not distended Percussion/Palpation: abdomen soft; abdomen nontender, no guarding and abdomen not rigid Musculoskeletal: Head/Neck/Chest: normocephalic and head atraumatic Skin: no rashes, warm and dry Neurologic: + focal motor deficit (see below) and awake; + plantar reflexes not intact (right upgoing) and not confused Speech / Cognition: + expressive aphasia; normal speech Motor/Sensory: + pronator drift (unable to move right side) Cranial Nerves: normal facial strength and able to rotate head bilaterally Flaccid RUE and RLE, no change in neurological exam from yesterday Psychiatric: Orientation: alert and cooperative; + not oriented to person, + not oriented to place and + not oriented to time Results & Data Results & Data ([facility]) Vital Signs (Past 12 Hours) Vital Signs Temp Pulse Pulse Resp BP Pulse Ox 08/25/19 15:50 37.0 C 88 18 158/73 H 96 08/25/19 11:47 36.5 C 98 H 18 137/76 92 08/25/19 07:49 36.6 C 76 16 172/74 H 94 08/25/19 07:29 67 PG Care Time/CCT Total # of Minutes Spent Total Time Spent with Patient: Total time spent is greater than 50% in coordination of care (as documented) at patient's floor/unit and/or counseling patient: Coding Level of Care Code 36177 Subseq Hosp Care Lvl 2 Diagnoses 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
[2019-08-26] MEDS: HEPARIN SOD 5,000 UNIT/0.5 ML VIAL SQ SCH ×2 (07:52→21:00)
[2019-08-26] MEDS: lisinopriL 20 MG TAB PO SCH (07:52)
[2019-08-26] MEDS: AMLODIPINE BESYLATE 5 MG TAB PO SCH (07:53)
[2019-08-26] MEDS: ASPIRIN 81 MG ECTAB PO SCH (07:53)
[2019-08-26] MEDS: CLOPIDOGREL BISULFATE 75 MG TAB PO SCH (07:53)
[2019-08-26] MEDS: ATORVASTATIN 40 MG TAB PO SCH (07:53)
[2019-08-26] MEDS ORDERED: AMLODIPINE BESYLATE 5 MG TAB PO ONE (09:00)
--- NOTE | 2019-08-26 21:38 | Hospitalist Progress Note ---
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: Acute left paramedial frontal lobe multiple acute CVAs Presented with being found down for unknown length of time in pool of her own urine, altered mental status Remains with Right hemiparesis and aphasic Symptom localization: left SUSAN Stroke mechanism: cardioembolic vs flow failure from intracranial atherosclerosis HbA1C 5.8, TSH WNL ECHO without thrombus but with interatrial shunt -> Dopplers LE b/l negative - Neuro, OT, PT and SLT consults appreciated - Continue ASA + Plavix for 30 days, then ASA alone - Continue atorvastatin 40mg PO daily, LDL 91 (not on statin) - Continue to decrease BP to goal BP < 135/85 (see below) - telemetry without a. fib - will need 30 day cardiac event monitor on discharge (2) Hypertensive urgency: Increased lisinopril to 20mg PO daily Continue to increase amlodipine (total 10mg given today) Continue hydralazine 5mg IV Q6H PRN for sBP > 200 Goal of lowering BP to normotension (<140/90) (3) Rhabdomyolysis: CPK downtrending, no need to repeat. Levels not concerning for VANIA. (4) PFO (patent foramen ovale): as above, Dopplers LEs neg (5) Aphasia due to acute cerebrovascular accident (CVA): as above (6) Hemiparesis: as above (7) Essential hypertension: as above (8) DVT prophylaxis: Heparin 5000 units q12h for DVT proph SCDs Patient is medically stable for discharge at this time pending placement decision. Admission and Anticipated Discharge Date Admission Date: August 22, 2019 Subjective No change in patient cognition. Not particularly responsive to daughters over Zoom today. She doesn't appear to remember me from day to day or comprehend her diagnosis in any way. Able to follow simple commands only. Updated her daughters over the phone. They expressed a wish to palliative care consult although she has no symptoms that are not being controlled. She certainly has poor functional status although at risk there is no clear pattern of decline from her stroke therefore I do not believe she would qualify for hospice care however will reach out to palliative when they are back tomorrow to run case by them. Review of Systems Review of Systems: Unobtainable due to cognitive status Physical Exam Constitutional: well developed and + frail appearing; no acute distress Eyes: + anicteric sclerae; normal pupil size (pupils equal) Respiratory: normal respiratory effort, lungs clear to auscultation no respiratory distress Cardiovascular: Rate/Rhythm: regular rate and regular rhythm Heart Sounds: no murmur Extremities: normal capillary refill Chest (Breasts): Chest: normal inspection of chest Gastrointestinal (Abdomen): Inspection/Auscultation: abdomen not distended Percussion/Palpation: abdomen soft; abdomen nontender, no guarding and abdomen not rigid Skin: no rashes, warm and dry Neurologic: + focal motor deficit (RUE, RLE flaccid) and awake; + plantar reflexes not intact (right upgoing) Speech / Cognition: + expressive aphasia Cranial Nerves: normal facial strength and able to rotate head bilaterally Psychiatric: Orientation: alert and cooperative; + not oriented to person, + not oriented to place and + not oriented to time Results & Data Results & Data ([facility]) Vital Signs (Past 12 Hours) Vital Signs Temp Pulse Pulse Resp BP Pulse Ox 08/26/19 19:07 36.5 C 78 18 161/72 H 95 08/26/19 15:27 95 H 08/26/19 15:26 36.4 C L 85 18 158/72 H 97 08/26/19 11:17 36.7 C 84 16 153/75 H 97 PG Care Time/CCT Total # of Minutes Spent Total Time Spent with Patient: Total time spent is greater than 50% in coordination of care (as documented) at patient's floor/unit and/or counseling patient: Coding Level of Care Code 04293 Subseq Hosp Care Lvl 2 Diagnoses 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
[2019-08-27 06:31] LABS: Hematocrit (blood only) 46.1 % (37-47); Hemoglobin 15.2 g/dL (12.0-16.0); Mean Corpuscular Hemoglobin 31.1 pg (25-34); Mean Corpuscular Volume 94.3 fL (80-100); Mean Platelet Volume 9.6 fL (7.4-10.4); Platelet Count 304 K/uL (130-400); RDW Coefficient of Variation 12.8 % (11.5-14.5); RDW Standard Deviation 43.8 fL (36.4-46.3); Red Blood Count 4.89 M/uL (4.2-5.4); White Blood Count 10.57 K/uL (4.8-10.8)
[2019-08-27] MEDS: ASPIRIN 81 MG ECTAB PO SCH (07:47)
[2019-08-27] MEDS: HEPARIN SOD 5,000 UNIT/0.5 ML VIAL SQ SCH ×2 (07:47→22:17)
[2019-08-27] MEDS: ATORVASTATIN 40 MG TAB PO SCH (07:47)
[2019-08-27] MEDS: CLOPIDOGREL BISULFATE 75 MG TAB PO SCH (07:48)
[2019-08-27] MEDS: lisinopriL 20 MG TAB PO SCH (07:48)
[2019-08-27] MEDS: AMLODIPINE BESYLATE 5 MG TAB PO SCH (07:52)
--- NOTE | 2019-08-27 18:13 | Hospitalist Progress Note ---
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: Acute left paramedial frontal lobe multiple acute CVAs Presented with being found down for unknown length of time in pool of her own urine, altered mental status Remains with Right hemiparesis and aphasic Symptom localization: left SUSAN Stroke mechanism: cardioembolic vs flow failure from intracranial atherosclerosis HbA1C 5.8, TSH WNL ECHO without thrombus but with interatrial shunt -> Dopplers LE b/l negative - Neuro, OT, PT and SLT consults appreciated - Continue ASA + Plavix for 30 days, then ASA alone - Continue atorvastatin 40mg PO daily, LDL 91 (not on statin) - Continue to decrease BP to goal BP < 135/85 (see below) - telemetry without a. fib - consider 30 day monitor, however, family likely will not want further work up plan to d/c to SNF tomorrow for rehab (2) Hypertensive urgency: Increased lisinopril to 20mg PO daily Norvasc started, increased to 10mg Continue hydralazine 5mg IV Q6H PRN for sBP > 200 Goal of lowering BP to normotension (<140/90) BP elevated today, will increase Lisinopril to 40mg tomorrow AM (3) Rhabdomyolysis: CPK downtrending, no need to repeat. Levels not concerning for VANIA. (4) PFO (patent foramen ovale): as above, Dopplers LEs neg (5) Aphasia due to acute cerebrovascular accident (CVA): as above (6) Hemiparesis: as above (7) Essential hypertension: as above (8) DVT prophylaxis: Heparin 5000 units q12h for DVT proph SCDs Patient is medically stable for discharge at this time pending placement decision. (9) Goals of care, counseling/discussion: long discussion with patient's daughters over the phone on 08/26 they want patient to be comfortable, would not want her to be suffering over the next months they are concerned about her depression, she was already depressed prior to the stroke she is DNR, DNI they are aware of what a POLST form includes, they will discuss their goals for mom, discuss with palliative care tomorrow prior to discharge leaning toward comfort measures only we discussed the complications of stroke immobility such as UTI, pneumonia, pressure ulcers, poor nutrition Admission and Anticipated Discharge Date Admission Date: August 22, 2019 Subjective patient appears to be at baseline she is comfortable, no signs of distress she is taking medications, eating okay very weak on the right side, not following commands, responses are not always clear had a long talk with her daughters over the phone, they are concerned about her mental status they report that she was depressed for a few weeks prior to this due to COVID 19 she was not seeing family, she was very sad now with a devastating stroke that will change the quality of her life the daughters are in the health care field, they understand the difficulties ahead of the patient understand the complications of UTI, pneumonia, pressure ulcers their main concern is her mental status, they are sure that she is even more depressed now with the stroke more than anything, they want her to have a peaceful I discussed the POLST form with them, palliative will discuss with them tomorrow suggested that if they want mom to pass away peacefully, then likely a good idea that she not come back and forth to the hospital they agreed, will outline their wishes with palliative tomorrow Review of Systems Review of Systems: Unobtainable due to cognitive status (appears to have some receptive and expressive aphasia) Physical Exam Constitutional: well developed, well nourished and + lethargic; not in distress Eyes: PERRL, conjunctivae normal, anicteric sclerae ENMT: external ear and nose normal, oropharynx normal Neck: trachea midline, no thyromegaly Respiratory: normal respiratory effort, lungs clear to auscultation Cardiovascular: RRR, no murmur, no edema Gastrointestinal (Abdomen): normal bowel sounds, soft, nontender, no he patosplenomegaly Musculoskeletal: Head/Neck/Chest: normocephalic and head atraumatic Extremities: extremities normal to inspection; + abnormal strength (right sided weakness, profound), no cyanosis and no clubbing Skin: no rashes, warm and dry Neurologic: CN's II-XI intact bilaterally, deep tendon reflexes 2+ bilaterally, + focal motor deficit (right arm, hand and leg profoundly weak) and + confused Speech / Cognition: + expressive aphasia and + receptive aphasia Psychiatric: Orientation: alert and oriented to person; + not oriented to place and + not oriented to time Affect: + depressed affect Mood: + depressed mood Lymphatic: no cervical or axillary lymphadenopathy Results & Data Results & Data ([facility]) Vital Signs (Past 12 Hours) Vital Signs Temp Pulse Pulse Resp BP Pulse Ox 08/27/19 17:55 86 08/27/19 15:24 36.4 C L 84 18 165/70 H 95 08/27/19 11:17 36.4 C L 95 H 16 135/71 96 08/27/19 07:13 77 08/27/19 07:07 37 C 75 16 167/81 H 96 Laboratory Results Laboratory Results - last 24 hr 08/27/19 06:22 WBC 10.57 RBC 4.89 Hgb 15.2 Hct 46.1 MCV 94.3 MCH 31.1 MCHC 33.0 RDW Std Deviation 43.8 RDW Coeff of [place] 12.8 Plt Count 304 MPV 9.6 Medications Administered Current Inpatient Medications Acetaminophen (Tylenol) 650 mg PO Q4H PRN PRN Reason: Pain or Fever Stop: 09/21/19 18:16 Amlodipine Besylate (Norvasc) 10 mg PO [facility] Stop: 09/26/19 08:59 Last Admin: 08/27/19 07:52 Dose: 10 mg Documented by: Aspirin (Ecotrin Ectab) 81 mg PO DAILY [facility] Stop: 09/22/19 08:59 Last Admin: 08/27/19 07:47 Dose: 81 mg Documented by: Atorvastatin Calcium (Lipitor) 40 mg PO [facility] Stop: 09/23/19 08:59 Last Admin: 08/27/19 07:47 Dose: 40 mg Documented by: Clopidogrel Bisulfate (Plavix) 75 mg PO [facility] Stop: 09/23/19 08:59 Last Admin: 08/27/19 07:48 Dose: 75 mg Documented by: Heparin Sodium (Porcine) (Heparin Sodium (Porcine)) 5,000 units SQ Q12 [facility] Stop: 09/23/19 20:59 Last Admin: 08/27/19 22:17 Dose: 5,000 units Documented by: Hydralazine HCl (Hydralazine Hcl) 5 mg IV Q6H PRN PRN Reason: SBP>200 Stop: 09/22/19 08:11 Lisinopril (Zestril) 20 mg PO DAILY [facility] Stop: 09/24/19 08:59 Last Admin: 08/27/19 07:48 Dose: 20 mg Documented by: Magnesium Hydroxide (Milk Of Magnesia) 30 ml PO Q12H PRN PRN Reason: Constipation Stop: 09/21/19 18:16 Last Admin: 08/26/19 21:00 Dose: 30 ml Documented by: Miscellaneous Information (Pharmacist Discharge Med Rec Consult) 1 ea N/A UD PRN PRN Reason: Consult Stop: 09/21/19 18:16 Ondansetron HCl (Zofran) 4 mg IV Q6H PRN PRN Reason: Nausea Stop: 09/21/19 18:16 PG Care Time/CCT Total # of Minutes Spent Total Time Spent: 40 Total Time Spent with Patient: Total time spent is greater than 50% in coordination of care (as documented) at patient's floor/unit and/or counseling patient: discussed with patient's daughters over the phone discussed with Ting Ramsey with palliative care as well as Dr. 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
[2019-08-28] MEDS: ATORVASTATIN 40 MG TAB PO SCH (08:17)
[2019-08-28] MEDS: ASPIRIN 81 MG ECTAB PO SCH (08:18)
[2019-08-28] MEDS: CLOPIDOGREL BISULFATE 75 MG TAB PO SCH (08:18)
[2019-08-28] MEDS: AMLODIPINE BESYLATE 5 MG TAB PO SCH (08:19)
[2019-08-28] MEDS: HEPARIN SOD 5,000 UNIT/0.5 ML VIAL SQ SCH (08:24)
[2019-08-28] MEDS ORDERED: lisinopriL 40 MG TAB PO SCH (09:00)
--- NOTE | 2019-08-28 11:15 | Palliative Care Consultation ---
Date of Consultation August 28, 2019 Assessment & Plan (1) Goals of care, counseling/discussion: -84 year old female patient with PMH of HTN, BCC, hearing loss, osteoporosis, vitamin D deficiency and others, presented to the ED after she was found unresponsive on the floor at home. Patient lives home alone. Has two daughters-- one in [place], one in [place]-- who were trying to call patient but she wasn't answering. Daughters called the police for a well-check, and patient was found unresponsive on the floor. She was worked up for CVA in the ED. MRI brain shows subacute infarct in left SUSAN territory. No afib noted on monitor, patient's family doesn't want further workup or monitor. Echo shows no thrombus but shows interarterial shunting. Neurology following. Patient is on ASA and Plavix. Post-CVA, patient is left with significant right sided deficits. Luckily, she has been able to safely take PO nutrition. She is able to say yes and no answers, but is rather aphasic and unable to have conversation or always follow commands. Prior to the CVA, patient was independent at home and living alone. Still walking around the block a month ago with her daughters when they would visit. Daughters have expressed that they do not want any heroic or aggressive measures-- prefer comfort care. Plan is for patient to go to SNF for rehab after hospitalization. Paliative care is now consulted to discuss goals and wishes. -Patient seen by palliative MD this afternoon. -Spoke at length with patient's two daughters: Irma Bush (CHIKI) who is an ICU nurse in [place], and Rianna Wills who a psychiatric pillowcase cutter in [place], [place]. Both have medical knowledge and are extremely well-versed and understanding of patient's medical condition. -Both daughters describe patient to be a fiercely independent woman who has discussed her end of life wishes many times over the years. Patient has always stated that when her quality of life is diminished/taken from her, that she does NOT want her life to be prolonged. Quality of life to the patient means living at home independently, able to care for herself and able to interact with family/loved ones. Daughters state that since patient will now be residing in SNF, with little hope of becoming independent again, that patient would want strictly comfort measures moving forward. -We discussed POLST form at length and completed one together as follows: DNR, comfort measures only, NO abx, no artificial hydration or nutrition. -Patient should not be rehospitalized for any reason other than comfort. biodiesel division manager is aware and will make [facility] aware of patient's wishes. After skilled stay, patient will likely transition to long-term resident/residential care. We discussed adding hospice care in the future and how that would be helpful. -No further questions/concerns from patient's daughters. NO symptom management needs at this time. -Discharge to SNF planned for today at 1400. (2) Aphasia due to acute cerebrovascular accident (CVA): (3) Hemiparesis: (4) PFO (patent foramen ovale): Supervising Physician Co-Signing Physician Notes Chart reviewed, patient seen and examined. Collaborated with MARKUS Camp as well as attending physician Dr. Schultz Patient responds to voice, good eye contact. When I told the patient that they were going to come pick her up at 2:00 she glanced about the clock on the wall in her room, she was unable to follow simple commands-did not respond when I asked her to squeeze my hand. She is feeding herself, no coughing or issues with swallowing. PE: Patient awake and alert, appears comfortable, nonverbal, able to nod yes or no to questions HEENT: EOMI, hearing appears to be within normal limits Respirations: Clear breath sounds, unlabored CV: Regular rate on exam Abdomen: Soft, nontender Extremities: Dense right hemiparesis, full range of motion left upper extremity Neuro: Expressive aphasia, some receptive aphasia. Agree with above note, assessment and plan as per MARKUS Camp. POLST form completed and will be sent to facility with patient. History of Present Illness Attending Physician: Errol Schultz, History of Present Illness This 84 year old female patient with PMH of HTN, BCC, hearing loss, osteoporosis, vitamin D deficiency and others, presented to the ED after she was found unresponsive on the floor at home. Patient lives home alone. Has two daughters-- one in [place], one in [place]-- who were trying to call patient but she wasn't answering. Daughters called the police for a well-check, and patient was found unresponsive on the floor. She was worked up for CVA in the ED. MRI brain shows subacute infarct in left SUSAN territory. No afib noted on monitor, patient's family doesn't want further workup or monitor. Echo shows no thrombus but shows interarterial shunting. Neurology following. Patient is on ASA and Plavix. Post-CVA, patient is left with significant right sided deficits. Luckily, she has been able to safely take PO nutrition. She is able to say yes and no answers, but is rather aphasic and unable to have conversation or always follow commands. Prior to the CVA, patient was independent at home and living alone. Still walking around the block a month ago with her daughters when they would visit. Daughters have expressed that they do not want any heroic or aggressive measures-- prefer comfort care. Plan is for patient to go to SNF for rehab after hospitalization. Paliative care is now consulted to discuss goals and wishes. Thank you kindly for this consult. Palliative care team will follow as needed. Allergies Allergy/AdvReac Type Severity Reaction Status Date / Time No Known Allergies Allergy Unknown Verified 07/13/19 11:41 Home Medications Home Medications Medication Instructions Recorded Confirmed Type cholecalciferol (vitamin D3) 25 1,000 units PO DAILY 12/23/18 08/22/19 History mcg (1,000 unit) capsule amlodipine [Norvasc] 10 mg PO QAM 30 Days #60 tab 08/28/19 Rx aspirin 81 mg PO DAILY 30 Days #30 tab 08/28/19 Rx atorvastatin 40 mg PO QAM 30 Days #30 tab 08/28/19 Rx clopidogrel 75 mg PO QAM 30 Days #30 tab 08/28/19 Rx lisinopril [Zestril] 40 mg PO DAILY 30 Days #30 tab 08/28/19 Rx Patient History Medical History Essential hypertension (Acute) Hearing loss (Acute) History of breast cancer (Resolved) Hx of basal cell carcinoma Osteoporosis (Acute) Rosacea (Acute) Syncope Vitamin D deficiency (Acute) Surgical History History of lumpectomy of left breast History of Mohs micrographic surgery for skin cancer Hx of tonsillectomy Tubal ligation status Family History Brother Pulmonary embolism Mother Stroke Other Leukemia Lung cancer Denies family history of Ovarian cancer Prostate cancer Myocardial infarction Breast cancer Colorectal cancer Social History Preferred Language: Citizen Of [place] Communication Ability: Unable Hearing Ability: Normal Metal Roofer Required: No Beliefs That Will Affect Care: None marital status: Current Living Situation: Alone current occupational status: retired Feels Safe at Home: Yes Smoking Status: Never smoker Hx Alcohol Use: No Hx Substance Use: No Childhood Exposure to Second-Hand Smoke: Yes Dental Care, Regularly: Yes Physical Activity Frequency: 3-4 Times per Week Seatbelt Use: always Sunscreen Use: Yes Results & Data Vital Signs (Past 12 Hours) Vital Signs Temp Pulse Pulse Resp BP BP Pulse Ox 08/28/19 07:13 36.3 C L 80 18 147/76 H 97 08/28/19 04:16 36.7 C 76 18 148/73 H 96 08/27/19 23:45 78 08/27/19 23:25 36.7 C 79 17 167/80 H 94 Coding Level of Care Code 25136 Inpt Consult Level 3 Diagnoses Goals of care, counseling/discussion Z71.89 Aphasia due to acute cerebrovascular accident (CVA) I63.9; R47.01 Hemiparesis G81.90 PFO (patent foramen ovale) Q21.1 Time Spent (min) 70 Time Spent Midlevel A total of 70 minutes spent by this WATCH REPAIRER APPRENTICE in reviewing chart, speaking with physicians and IDT, as well as speaking with family for family meeting and to ave SHERMAN.
--- NOTE | 2019-08-28 16:12 | Discharge Summary ---
Date of Service August 28, 2019 Admission HPI Per Admitting Provider 84 y/o F who was brought to the ED by ambulance after being found unresponsive and soaked in urine on the floor of her home. Pt was initially unresponsive in the ED, however upon my exam she is able to answer yes/no questions. Pt denies fever, SOB, chest pain, abd pain, n/v/c/d, LE pain or swelling. She cannot give me further details. I did speak with pt's daughter, Angelika Salinas, who is a nurse in [place]. She tells me that last contact with her mother was via her sister on Saturday and pt was doing well at that time. Pt requested that they stop checking in with her as much as they had been because she was doing fine despite the current COVID issues. They did not attempt to call her until yesterday. No answer was obtained and no return call from multiple calls. They thought pt might be busy with other things or ignoring them as she had requested them to not worry with her, but when pt was not answering or returning calls this AM, they became nervous. Police were asked to do a well check and obtained entry to the home when pt did not answer the door or phone. Pt was found on the floor as noted above. Daughter states that pt is generally quite active and healthy. Prior to COVID restrictions, she was going to the gym multiple times a week. She is very talkative and has no issues living on her own or communicating. Her only health issue was a syncopal episode last February. It was noted at that time that her BP was markedly elevated and she was started on lisinopril on d/c. She has been working with her PCP and this dose has been decreased lately. Principal Diagnosis Ischemic stroke Discharge Exam Constitutional well developed, well nourished and + lethargic; not in distress Eyes PERRL, conjunctivae normal, anicteric sclerae ENMT external ear and nose normal, oropharynx normal Neck trachea midline, no thyromegaly Respiratory normal respiratory effort, lungs clear to auscultation Cardiovascular RRR, no murmur, no edema Gastrointestinal (Abdomen) normal bowel sounds, soft, nontender, no hepatosplenomegaly Musculoskeletal Head/Neck/Chest: normocephalic and head atraumatic Extremities: extremities normal to inspection; + abnormal strength (right sided weakness, profound), no cyanosis and no clubbing Skin no rashes, warm and dry Neurologic CN's II-XI intact bilaterally, deep tendon reflexes 2+ bilaterally, + focal motor deficit (right arm, hand and leg profoundly weak) and + confused Speech / Cognition: + expressive aphasia and + receptive aphasia Psychiatric Orientation: alert and oriented to person; + not oriented to place and + not oriented to time Affect: + depressed affect Mood: + depressed mood Lymphatic no cervical or axillary lymphadenopathy Discharge Data Allergies Allergy/AdvReac Type Severity Reaction Status Date / Time No Known Allergies Allergy Unknown Verified 07/13/19 11:41 Consultations 08/22/19 18:17 Consult Case Management - Discharge Planning Routine Consult Neurology Routine 08/27/19 11:16 Consult Palliative Care Routine Ordered Studies 08/22/19 13:54 CT cervical spine wo con Stat CT head/brain wo con Stat 08/22/19 18:49 MR brain wo con Stat 08/22/19 19:57 CT angio head w con Urgent CT angio neck with con Urgent 08/23/19 14:34 US venous doppler LE Urgent Hospital Course (1) 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: Acute left paramedial frontal lobe multiple acute CVAs Presented with being found down for unknown length of time in pool of her own urine, altered mental status Remains with Right hemiparesis and aphasic Symptom localization: left SUSAN Stroke mechanism: cardioembolic vs flow failure from intracranial atherosclerosis HbA1C 5.8, TSH WNL ECHO without thrombus but with interatrial shunt -> Dopplers LE b/l negative - Neuro, OT, PT and SLT consults appreciated - Continue ASA + Plavix for 30 days, then ASA 81mg alone - Continue atorvastatin 40mg PO daily, LDL 91 (not on statin) - Continue to decrease BP to goal BP < 135/85 (see below) - telemetry without a. fib - consider 30 day monitor, however, family would not want further work up plan to d/c to SNF today for rehab POLST form completed (2) Hypertensive urgency: Increased lisinopril to 40mg PO daily Norvasc started, increased to 10mg Goal of lowering BP to normotension (<140/90) (3) Rhabdomyolysis: CPK downtrending, no need to repeat. Levels not concerning for VANIA. (4) PFO (patent foramen ovale): as above, Dopplers LEs neg (5) Aphasia due to acute cerebrovascular accident (CVA): as above (6) Hemiparesis: as above (7) Essential hypertension: as above (8) DVT prophylaxis: Heparin 5000 units q12h for DVT proph SCDs Patient is medically stable for discharge at this time pending placement decision. (9) Goals of care, counseling/discussion: long discussion with patient's daughters over the phone on 08/26 they want patient to be comfortable, would not want her to be suffering over the next months they are concerned about her depression, she was already depressed prior to the stroke she is DNR, DNI daughters want comfort measures only, would not even want antibiotics for UTI, pneumonia etc we discussed the complications of stroke immobility such as UTI, pneumonia, pressure ulcers, poor nutrition POLST form completed on 08/27 with palliative care Total Time Total Time Spent Total Time Spent (In Minutes): 36 minutes Total Time Includes: Examination of the Patient, Discharge Planning, Medication Reconciliation, Communication With Other Providers (Dr. Ocasio) and Other (discussion with patient's daughters over the phone) Discharge Plan Discharge Items Patient Disposition: Transfer Custodial Fac Reason For Visit: POSSIBLE CVA Discharge Diagnosis: Left sided CVA, several areas of stroke Condition on Discharge: Good Goals: participate in therapy improve nutrition comfort is main goal, if patient declines clinically keep her comfortable Activity: Per Instructions section Activity Comment: advance as tolerated Non-emergency contact: Primary Care Provider Call non-emergency contact if: you have any medication questions Follow-up/Referrals: Johnathon Rachel MD [Primary Care Provider] - Diet: Heart Healthy Addtl Attending Provider Instructions: Medications: - PLAVIX: take 75mg daily for thirty days then stop, just use aspirin - ASPIRIN: 81mg daily indefinitely for stroke prevention - LIPITOR: 40mg daily indefinitely - NORVASC: 10mg daily for blood pressure control - LISINOPRIL: 40mg daily for blood pressure control Acute left sided CVA with residual right sided hemiparesis, expressive and receptive aphasia significant decline in her quality of life, will d/c to SNF for rehab for secondary stroke prevention, will use Plavix + Aspirin for 30 days, then JUST aspirin 81mg daily use Lipitor 40mg daily blood pressure control with Norvasc and Lisinopril no further work up for stroke, had considered 30 day monitor to r/o atrial fibrillation, family does not desire further work up daughters are POA, very clear on their wishes for the patient POLST completed, she is comfort measures only, no antibiotics, if she would decline clinically (pneumonia, UTI, poor oral intake etc) focus should be on comfort she is not in any obvious discomfort at this time the below stroke d/c instructions are included for stroke protocol in this patient's case, would not call 911 for new stroke symptoms, just focus on comfort for patient Risk Factors for Stroke: You can reduce your chances of stroke by working with your medical provider to adopt a healthy lifestyle. Some specific ways to lower your chance of stroke are: * If you are a smoker, now is the time to stop smoking cigarettes * If you are diabetic, improve the control of your blood sugars * Avoid excessive amounts of alcohol * Control high blood pressure * Lose weight if you are overweight * Be sure to lead an active lifestyle * Eat a healthy diet low in salt, cholesterol and fat You should know about other risk factors for stroke that you are unable to control. These include: * Age 55 years or older * Male gender * Certain racial groups: , or / * Family History of Stroke, Mini stroke or Heart Attack * Sickle Cell Disease Follow Up: It is important for you to keep your follow up appointments with your medical provider. Who to Call and When: Medical Emergencies: Call 911 immediately if you experience any of the following warning signs and symptoms of Stroke: * Sudden numbness or weakness of the face, arm or leg, especially on one side of the body * Sudden confusion, trouble speaking or understanding * Sudden trouble seeing in one or both eyes * Sudden trouble walking, dizziness, loss of balance or coordination * Sudden severe headache with no cause Do not delay calling 911 if you experience any warning signs or symptoms of a stroke. Delay in seeking medical attention may affect what treatments can be given to you. . Pending Studies at Discharge: No Stand-Alone Forms: [facility] Skilled Items Patient informed of condition?: Yes DNR: Yes Discharge Level of Care: Skilled Communicable Disease: No Discharge Prognosis: Stable Lines: None Urinary Catheter: Yes (change every 30 days) Medications and DC Order Prescriptions: New atorvastatin 40 mg Tablet 40 mg PO QAM 30 Days Qty: 30 RF: 3 clopidogrel 75 mg Tablet 75 mg PO QAM 30 Days Qty: 30 RF: 3 amlodipine [Norvasc] 5 mg Tablet 10 mg PO QAM 30 Days Qty: 60 RF: 3 aspirin 81 mg Tablet,Delayed Release (Dr/Ec) 81 mg PO DAILY 30 Days Qty: 30 RF: 3 lisinopril [Zestril] 40 mg Tablet 40 mg PO DAILY 30 Days Qty: 30 RF: 3 Continued cholecalciferol (vitamin D3) 1,000 unit capsule 1,000 units PO DAILY RF: 0 Discontinued lisinopril 5 mg tablet 5 mg PO DAILY Qty: 30 RF: 4 Discharge Orders: Discharge Order (Routine); Ordered 08/28/19 Ordered By: Errol Hameed/Other Patient Handouts: Stroke Dc Admission Data Admit Date/Time: 08/22/19 16:55 Attending Provider: Errol Schultz Admit Provider: Berkley Schneider Primary Care Provider: Johnathon Rachel Other Providers: José Luis Huff ; [place] [facility] ; [facility] [place] ; [facility] ; [facility] ; Angelika Hudson Other Interventions: Discharge Summary Assessment (RN) Last Done: 08/28/19 13:23 DC Date/Time DO NOT enter until pt leaves facility: 08/28/19 14:25 Coding Level of Care Code D/C Day Management >30 mins Diagnoses 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
== END 2019-08-28 14:25 | DRG 65 ==
LOC: ED 13:47 → 2N 16:55 → SUATTDRO 16:55 → 2N 17:46